=== PATIENT | male | born 1985 | race Caucasian/White ===

== ENCOUNTER 2020-02-23 02:26 | Emergency (ER) | payer SELFPAY ==
[~2020-02-23] VITALS: Ht 182.9 cm; Wt 95.3 kg
[2020-02-23 02:34] VITALS: BP 117/85
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
--- NOTE | 2020-02-23 02:38 | NUR ---
ED Nurse Note: PT IS UNCOOPERATIVE AND REPEATEDLY STATES HE WISH TO LEAVE. ERMD AT BEDSIDE
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
--- NOTE | 2020-02-23 03:33 | NUR ---
[employer] here to follow up, informed that patient has been discharged already. [employer] left.
== END 2020-02-23 02:42 | disposition home or self-care (01) ==
LOC: EDBD 02:26 → EMR 02:40
DX: R45.1 Restlessness and agitation (principal); V43.52XA Car driver injured in collision with other type car in traffic accident, initial encounter; Y92.9 Unspecified place or not applicable
CPT/HCPCS: 99281